=== PATIENT | male | born 1985 | race Caucasian/White ===

== ENCOUNTER → 2024-02-09 07:30 | Outpatient (REF) | payer BC, SELFPAY | LOC: HWRAD 07:30 | PROVIDERS: ATTENDING PHYSICIAN Family Medicine | DX: R05.9 Cough, unspecified (principal); R09.81 Nasal congestion; R91.8 Other nonspecific abnormal finding of lung field | CPT/HCPCS: 71046; 71270; Q9967 ==

== ENCOUNTER 2024-02-14 06:15 | Day surgery (SDC) | payer BC, SELFPAY ==
[2024-02-14] VITALS (11 sets, daily range): BP systolic 103–143; BP diastolic 70–92; BMI 29.1
== END 2024-02-14 17:10 | disposition home or self-care (01) ==
LOC: GI 06:15
PROVIDERS: ATTENDING PHYSICIAN Internal Medicine Critical Care Medicine
DX: R91.8 Other nonspecific abnormal finding of lung field (principal); J40 Bronchitis, not specified as acute or chronic; C34.31 Malignant neoplasm of lower lobe, right bronchus or lung
CPT/HCPCS: 31629; 31628; 31624; 31654; 88172; 88173; 88305; 71045; 87015; 87070; 87102; 87116; 87205; 88112; 88333; 88334; 88341; 88342

== ENCOUNTER → 2024-02-28 09:54 | Outpatient (REF) | payer BC, SELFPAY | LOC: PET 09:54 | PROVIDERS: ATTENDING PHYSICIAN Nurse Practitioner Adult Health | DX: R91.8 Other nonspecific abnormal finding of lung field (principal) | CPT/HCPCS: 78815; A9552 ==

== ENCOUNTER → 2024-07-05 11:57 | Outpatient (REF) | payer BC, SELFPAY | LOC: HWRAD 11:57 | PROVIDERS: ATTENDING PHYSICIAN Family Medicine | DX: Z98.890 Other specified postprocedural states (principal); R05.9 Cough, unspecified; R50.9 Fever, unspecified | CPT/HCPCS: 71046 ==

== ENCOUNTER → 2024-07-20 09:15 | Outpatient (REF) | payer BC, SELFPAY ==
[2024-07-20 12:38] LABS: % Basophils 0.4 % (0-2); % Eosinophils 1.3 % (0-6); % Immature Granulocytes 0.5 % (0-0.5); % Lymphocytes 26.7 % (20.5-51.1); % Monocytes 5.2 % (1.7-9.3); % Neutrophils 65.9 % (42.2-75.2); Absolute Eosinophils 0.1 10^3/uL (0-0.7); Absolute Immature Granulocytes 0.1 10^3/uL (0-0.05); Absolute Lymphocytes 2.8 10^3/uL (1.2-3.4); Absolute Monocytes 0.5 10^3/uL (0.1-0.6); Absolute Neutrophils 6.9 10^3/uL (1.4-6.5); Hematocrit 43.4 % (39.0-52.0); Hemoglobin 14.8 g/dL (13.0-18.0); Mean Corp Hgb Conc. 34.1 g/dL (33.0-37.0); Mean Corpuscular Hgb 29.1 pg (27.0-31.0); Mean Corpuscular Volume 85.3 fL (80.0-94.0); Mean Platelet Volume 8.4 fL (7.4-10.4); Nucleated Red Blood Cells % 0 % (-); Platelet Count 297 10^3/uL (130-400); Red Blood Cell Count 5.09 10^6/uL (4.70-6.10); Red Cell Dist. Width 12.4 % (11.5-14.5); White Blood Cell Count 10.4 10^3/uL (4.8-10.8)
[2024-07-20 13:09] LABS: ALT (SGPT) 21 U/L (0-50); AST (SGOT) 22 U/L (17-59); Albumin 4.6 g/dl (3.5-5.0); Alkaline Phosphatase 62 U/L (38-126); Blood Urea Nitrogen 15 mg/dl (9-20); Calcium 9.7 mg/dl (8.4-10.2); Carbon Dioxide 29 mmol/L (22-30); Chloride 101 mmol/L (98-107); Glucose 91 mg/dl (70-99); HDL Cholesterol 32 mg/dl; LDL Cholesterol, Calculated 127 mg/dl; Potassium 4.5 mmol/L (3.5-5.1); Sodium 138 mmol/L (135-145); Total Cholesterol 183 mg/dl (50-199); Total Protein 7.3 g/dl (6.3-8.2); Triglyceride 121 mg/dl (10-149); Very Low Density Lipoprotein 24 mg/dl (0-30); eGFR > 60.00
[2024-07-20 13:38] LABS: TSH 0.68 uIU/ml (0.47-4.68)
== END ==
LOC: HWLAB 09:15
PROVIDERS: ATTENDING PHYSICIAN Family Medicine
DX: Z00.01 Encounter for general adult medical examination with abnormal findings (principal); J30.2 Other seasonal allergic rhinitis; Z98.890 Other specified postprocedural states; R53.83 Other fatigue; M54.10 Radiculopathy, site unspecified
CPT/HCPCS: 36415; 80053; 80061; 84443; 85025